=== PATIENT | male | born 1950 ===

== ENCOUNTER → 2018-08-18 14:23 | Outpatient (REF) | payer BC, SELFPAY ==
[2018-08-18 14:54] LABS: Alanine Aminotransferase 33 IU/L (21-72); Albumin Globulin Ratio 1.5 (1.0-2.8); Alkaline Phosphatase 51 U/L (38-126); Aspartate Aminotransferase 24 IU/L (17-59); Bilirubin Total 0.8 mg/dL (0.2-1.3); Blood Urea Nitrogen 12 mg/dL (9-20); Calcium 8.7 mg/dL (8.4-10.2); Carbon Dioxide 23 mmol/L (22-32); Chloride 107 mmol/L (98-107); Cholesterol 120 mg/dL (140-199); Estimated Glomerular Filt Rate > 60.0 mL/min (>60); Globulin 2.6 g/dL (1.7-4.1); Glucose 92 mg/dL (80-110); HDL Cholesterol 36 mg/dL (40-60); HEMOLYSIS 49 (0-50); LDL Cholesterol Calculated 47 mg/dL (<100); Sodium 142 mmol/L (137-145); Total Protein 6.6 g/dL (6.3-8.2); Triglycerides 183 mg/dL (35-150); Uric Acid 7.5 mg/dL (3.5-8.5)
[2018-08-18 14:55] LABS: Hemoglobin A1C% w Est Avg Glu 5.5 % (4.0-6.0)
[2018-08-18 15:25] LABS: Thyroid Stimulating Hormone 1.63 uIU/mL (0.47-4.68)
[2018-08-18 15:26] LABS: Prostate Specific Antigen 5.36 ng/mL (0.10-4.00)
== END ==
LOC: LAB 14:23
PROVIDERS: Visit Provider Family Medicine
DX: E03.9 Hypothyroidism, unspecified (principal); M10.9 Gout, unspecified; E66.01 Morbid (severe) obesity due to excess calories; Z12.5 Encounter for screening for malignant neoplasm of prostate; Z13.6 Encounter for screening for cardiovascular disorders; Z13.1 Encounter for screening for diabetes mellitus; Z13.228 Encounter for screening for other metabolic disorders
CPT/HCPCS: 36415; 80053; 80061; 82728; 83036; 84153; 84443; 84550